=== PATIENT | male | born 2000 | race Caucasian/White ===

== ENCOUNTER 2021-01-11 12:41 | Emergency (ER) | payer OTHER ==
[2021-01-11] MEDS ORDERED: Acetaminophen/oxyCODONE 325-5 MG Tab PO ONE ×2 (12:42→16:02)
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
[2021-01-11] MEDS ORDERED: Acetaminophen/oxyCODONE 325-5 MG Tab ONE (16:17)
== END 2021-01-11 16:27 | disposition home or self-care (01) ==
LOC: DL.ED 12:41
DX: S92.322A Displaced fracture of second metatarsal bone, left foot, initial encounter for closed fracture (principal); S92.335A Nondisplaced fracture of third metatarsal bone, left foot, initial encounter for closed fracture; Z88.0 Allergy status to penicillin; V27.4XXA Motorcycle driver injured in collision with fixed or stationary object in traffic accident, initial encounter
CPT/HCPCS: 73630; 99284; A9270

== ENCOUNTER 2023-06-13 12:47 | Emergency (ER) | payer OTHER ==
[2023-06-13] MEDS ORDERED: Sodium Chloride 0.9% 10 ML Syringe FLUSH PRN (14:02)
[2023-06-13] MEDS ORDERED: Sodium Chloride 0.9% 1,000 ML IV ONE ×2 (14:03→15:05)
[2023-06-13] MEDS ORDERED: diphenhydrAMINE 50 MG/ML SDV IVPUSH ONE (14:04)
[2023-06-13] MEDS ORDERED: Ketorolac 30 MG/ML SDV IVPUSH ONE (14:04)
[2023-06-13] MEDS ORDERED: Metoclopramide 10 MG/2 ML SDV IVPUSH ONE (14:04)
[2023-06-13 14:16] LABS: BASOPHILS PERCENT AUTO 0.5 % (0.0-1.0); EOSINOPHILS PERCENT AUTO 0.6 % (1.0-3.0); HEMATOCRIT 42.3 % (40.0-54.0); HEMOGLOBIN 14.1 g/dL (14.0-18.0); LYMPHOCYTES PERCENT AUTO 7.8 % (20.5-50.1); MEAN CORPUSCULAR HEMOGLOBIN 33.2 pg (27.0-34.0); MEAN CORPUSCULAR HGB CONC 33.3 g/dL (33.0-35.0); MEAN CORPUSCULAR VOLUME 99.5 fL (80-100); MONOCYTES PERCENT AUTO 5.7 % (2-8); NEUTROPHILS PERCENT AUTO 85.4 % (42.2-75.2); PLATELET COUNT,PLT 238 10^3/uL (150-450); RED BLOOD CELL COUNT 4.25 10^6/uL (4.6-6.2); WHITE BLOOD CELL COUNT,WBC 14.5 10^3/uL (5.0-10.0)
[2023-06-13 14:35] LABS: A/G RATIO 1.2; ALANINE AMINOTRANSFERASE,ALT 58 U/L (16-63); ALBUMIN 3.8 g/dL (3.4-5.0); ALKALINE PHOSPHATASE 66 U/L (46-116); ANION GAP 8.1 mEq/L (7-13); ASPARTATE AMNIOTRANSFERASE,AST 40 U/L (15-37); BILIRUBIN TOTAL 0.2 mg/dL (0.2-1.0); BLOOD UREA NITROGEN,BUN 14 mg/dL (7-18); BUN/CREATININE RATIO 13.9 (No establ ref range); CALCIUM 8.6 mg/dL (8.5-10.1); CARBON DIOXIDE,CO2 32 mmol/L (21-32); CHLORIDE,CL 103 mmol/L (98-107); CREATININE 1.01 mg/dL (0.70-1.30); EST CRCL DRUG DOSING (CG) 115.44 mL/min; GLUCOSE RANDOM 100 mg/dL (70-99); POTASSIUM,K 4.1 mmol/L (3.5-5.1); PROTEIN TOTAL,TP 7.1 g/dL (6.4-8.2); SODIUM,NA 139 mmol/L (136-145)
[2023-06-13 14:36] LABS: C-REACTIVE PROTEIN < 0.50 ng/dL (<=0.50); ESTIMATED GFR 106 mL/min (>=60); ETHANOL BLOOD MEDICAL < 3 mg/dL (0)
[2023-06-13 15:03] LABS: APPEARANCE,URINE CLOUDY (CLEAR); BILIRUBIN,URINE NEGATIVE (NEGATIVE); COLOR,URINE YELLOW (YELLOW); GLUCOSE,URINE NEGATIVE (NEGATIVE); KETONES,URINE NEGATIVE (NEGATIVE); LEUKOCYTE ESTERASE,URINE NEGATIVE (NEGATIVE); NITRITE,URINE NEGATIVE (NEGATIVE); OCCULT BLOOD,URINE NEGATIVE (NEGATIVE); PROTEIN,URINE NEGATIVE (NEGATIVE); UROBILINOGEN,URINE 0.2 mg/dL (0.2-1.0)
[2023-06-13] MEDS ORDERED: Iopamidol 612 MG/ML 100 ML Bottle IVPUSH ONE (15:05)
[2023-06-13 15:07] LABS: AMPHETAMINES,URINE NEGATIVE (NEGATIVE); BARBITURATES,URINE NEGATIVE (NEGATIVE); BENZODIAZEPINE,URINE NEGATIVE (NEGATIVE); MDMA (ECSTASY), URINE NEGATIVE (NEGATIVE); METHADONE,URINE NEGATIVE (NEGATIVE); METHAMPHETAMINES,URINE NEGATIVE (NEGATIVE); OPIATES,URINE NEGATIVE (NEGATIVE); OXYCODONE,URINE NEGATIVE (NEGATIVE); PHENCYCLIDINE,URINE NEGATIVE (NEGATIVE); TCA,URINE NEGATIVE (NEGATIVE)
[2023-06-13] MEDS ORDERED: Naloxone 2 MG/2 ML Syringe IVPUSH STA (15:37)
[2023-06-13 15:47] LABS: CORONAVIRUS COVID-19 NAA NEGATIVE (NEGATIVE); INFLUENZA A NAA NEGATIVE (NEGATIVE); INFLUENZA B NAA NEGATIVE (NEGATIVE); RESPIRATORY SYNCYTIAL VIR NAA NEGATIVE (NEGATIVE)
[2023-06-13] MEDS ORDERED: Take Home: Ondansetron 4 MG Tab.DIS, 5 Tab Pack PO ONE (16:13)
[2023-06-13] MEDS ORDERED: Take Home: Doxycycline 100 MG Cap, 4 Cap Pack PO ONE (16:13)
== END 2023-06-13 17:08 | disposition home or self-care (01) ==
LOC: DL.ED 12:47
DX: J32.9 Chronic sinusitis, unspecified (principal); R11.2 Nausea with vomiting, unspecified; F14.10 Cocaine abuse, uncomplicated; F12.10 Cannabis abuse, uncomplicated; F17.210 Nicotine dependence, cigarettes, uncomplicated; Z88.0 Allergy status to penicillin
CPT/HCPCS: 0241U; 36415; 70470; 80053; 80305-QW; 80307; 81003; 85025; 86140; 87081; 87430; 96361; 96374; 96375; 99284; 99284-25; J1200; J1885; J2310; J2765; J7030; Q9967

== ENCOUNTER 2023-06-18 13:32 | Emergency (ER) | payer OTHER ==
[2023-06-18] MEDS ORDERED: OLANZapine 10 MG Vial IM ONE ×2 (13:43→13:56)
[2023-06-18] MEDS ORDERED: Sodium Chloride 0.9% 10 ML Syringe FLUSH PRN (13:43)
[2023-06-18] MEDS ORDERED: OLANZapine 10 MG Vial ONE (13:54)
[2023-06-18 14:08] LABS: BASOPHILS PERCENT AUTO 0.2 % (0.0-1.0); EOSINOPHILS PERCENT AUTO 0.8 % (1.0-3.0); HEMATOCRIT 47.9 % (40.0-54.0); HEMOGLOBIN 16.1 g/dL (14.0-18.0); MEAN CORPUSCULAR HEMOGLOBIN 33.1 pg (27.0-34.0); MEAN CORPUSCULAR HGB CONC 33.6 g/dL (33.0-35.0); MEAN CORPUSCULAR VOLUME 98.4 fL (80-100); PLATELET COUNT,PLT 388 10^3/uL (150-450); RED BLOOD CELL COUNT 4.87 10^6/uL (4.6-6.2); WHITE BLOOD CELL COUNT,WBC 17.1 10^3/uL (5.0-10.0)
[2023-06-18] MEDS ORDERED: diphenhydrAMINE 50 MG/ML SDV IVPUSH ONE (14:13)
[2023-06-18] MEDS ORDERED: LORazepam 2 MG/ML SDV IVPUSH ONE (14:13)
[2023-06-18 14:29] LABS: A/G RATIO 1.2; ALBUMIN 4.8 g/dL (3.4-5.0); ALKALINE PHOSPHATASE 72 U/L (46-116); ANION GAP 26.2 mEq/L (7-13); ASPARTATE AMNIOTRANSFERASE,AST 13 U/L (15-37); BILIRUBIN TOTAL 0.7 mg/dL (0.2-1.0); BLOOD UREA NITROGEN,BUN 16 mg/dL (7-18); CALCIUM 9.1 mg/dL (8.5-10.1); CARBON DIOXIDE,CO2 17 mmol/L (21-32); CHLORIDE,CL 98 mmol/L (98-107); GLUCOSE RANDOM 128 mg/dL (70-99); POTASSIUM,K 3.2 mmol/L (3.5-5.1); PROTEIN TOTAL,TP 8.7 g/dL (6.4-8.2); SODIUM,NA 138 mmol/L (136-145)
[2023-06-18 14:36] LABS: C-REACTIVE PROTEIN < 0.50 ng/dL (<=0.50); ESTIMATED GFR 61 mL/min (>=60)
[2023-06-18 14:40] LABS: AMPHETAMINES,URINE NEGATIVE (NEGATIVE); BARBITURATES,URINE NEGATIVE (NEGATIVE); BENZODIAZEPINE,URINE NEGATIVE (NEGATIVE); MDMA (ECSTASY), URINE NEGATIVE (NEGATIVE); METHADONE,URINE NEGATIVE (NEGATIVE); METHAMPHETAMINES,URINE NEGATIVE (NEGATIVE); OPIATES,URINE NEGATIVE (NEGATIVE); OXYCODONE,URINE NEGATIVE (NEGATIVE); PHENCYCLIDINE,URINE NEGATIVE (NEGATIVE); TCA,URINE NEGATIVE (NEGATIVE)
[2023-06-18] MEDS ORDERED: Haloperidol Lactate 5 MG/ML SDV IVPUSH ONE (14:50)
[2023-06-18] MEDS ORDERED: Ketamine 500 mg/10 ML MDV IV ONE ×3 (15:00→15:54)
[2023-06-18 15:01] LABS: ALANINE AMINOTRANSFERASE,ALT 33 U/L (16-63)
[2023-06-18] MEDS ORDERED: fentaNYL 250 MCG in Sodium Chloride 0.9% 250 ML IV ONE (15:30)
[2023-06-18] MEDS ORDERED: Midazolam 50 MG in Sodium Chloride 0.9% 40 ML IV SCH ×2 (15:30→16:00)
[2023-06-18] MEDS ORDERED: Rocuronium 100 MG/10 ML MDV IVPUSH ONE (15:42)
[2023-06-18] MEDS ORDERED: Midazolam 1 MG/ML 2 ML SDV ONE ×5 (16:01→18:20)
[2023-06-18] MEDS ORDERED: Rocuronium 100 MG/10 ML MDV IV ONE ×4 (16:02→18:00)
[2023-06-18] MEDS ORDERED: Sodium Chloride 0.9% 1,000 ML IV ONE ×2 (16:03→16:17)
[2023-06-18] MEDS ORDERED: Etomidate 2 MG/ML 10 ML SDV IVPUSH ONE (16:04)
[2023-06-18] MEDS ORDERED: Midazolam 1 MG/ML 2 ML SDV IVPUSH ONE ×4 (16:04→19:45)
[2023-06-18 16:05] LABS: BASE EXCESS ARTERIAL 1 mmol/L ((-2)-(+3)); BICARBONATE,ARTERIAL 26.1 mmol/L (22-26); O2 DELIVERY DEVICE VENTILATOR; O2 SATURATION ARTERIAL 98 % (95-100); PCO2 ARTERIAL 44 mmHg (35-45); PH,ARTERIAL 7.39 (7.35-7.45); PO2 ARTERIAL 113 mmHg (70-100)
[2023-06-18] MEDS ORDERED: fentaNYL 250 MCG in Sodium Chloride 0.9% 250 ML IV SCH (17:45)
[2023-06-21 13:11] LABS: ALLEN TEST NOT PERFORMED
== END 2023-06-18 19:07 ==
LOC: DL.ED 13:32
DX: F19.951 Other psychoactive substance use, unspecified with psychoactive substance-induced psychotic disorder with hallucinations (principal); Z88.0 Allergy status to penicillin
CPT/HCPCS: 31500; 36415; 36600; 70450; 71045; 80053; 80305; 82140; 82803; 85025; 86140; 96365; 96366; 96368; 96372; 96375; 96376; 99285; J1200; J1630; J2060; J2250; J2405; J3010; J3490; J7030; J7050

== ENCOUNTER 2023-06-26 00:37 | Emergency (ER) | payer OTHER ==
[2023-06-26] MEDS ORDERED: Ketorolac 30 MG/ML SDV IVPUSH ONE (01:05)
[2023-06-26] MEDS ORDERED: Sodium Chloride 0.9% 10 ML Syringe FLUSH PRN (01:05)
[2023-06-26] MEDS ORDERED: LORazepam 2 MG/ML SDV IVPUSH ONE (01:05)
== END 2023-06-26 01:48 | disposition home or self-care (01) ==
LOC: DL.ED 00:37
DX: G43.909 Migraine, unspecified, not intractable, without status migrainosus (principal); F17.210 Nicotine dependence, cigarettes, uncomplicated; Z88.0 Allergy status to penicillin
CPT/HCPCS: 96374; 96375; 99283; J1885; J2060; J3490

== ENCOUNTER 2023-12-05 13:05 | Emergency (ER) | payer OTHER ==
[2023-12-05] MEDS: Bacitracin/Neomycin/Polymyxin B Oint 28.4 GM Tube TOP ONE (14:46)
[2023-12-05] MEDS: Lidocaine 1% 5 ML VIAL INJECT ONE (14:46)
[2023-12-05] MEDS: Ketorolac 30 MG/ML SDV IVPUSH ONE (14:50)
[2023-12-05] MEDS: Orphenadrine 60 MG/2 ML Inj IM ONE (14:52)
[2023-12-05] MEDS: Take Home: Doxycycline 100 MG Cap, 4 Cap Pack PO ONE (14:57)
[2023-12-05] MEDS: Take Home: Clindamycin HCl 150 MG, 12 Cap Pack PO ONE (14:59)
[2023-12-05] MEDS: Sodium Chloride 0.9% 10 ML Syringe FLUSH PRN (15:27)
[2023-12-05] MEDS: Vancomycin 1.5 GM in Sodium Chloride 0.9% 500 ML IV ONE (15:27)
[2023-12-05] MEDS: Take Home: Cyclobenzaprine 10 MG Tab, 4 Tab Pack PO ONE (16:05)
[2023-12-05] MEDS: Diphtheria,Pertussis(Acell),Tetanus Vaccine 0.5 ML Syringe IM ONE (17:09)
== END 2023-12-05 17:37 | disposition home or self-care (01) ==
LOC: DL.ED 13:05
DX: S63.282A Dislocation of proximal interphalangeal joint of right middle finger, initial encounter (principal); S39.012A Strain of muscle, fascia and tendon of lower back, initial encounter; Z88.0 Allergy status to penicillin; V29.99XA Rider (driver) (passenger) of other motorcycle injured in unspecified traffic accident, initial encounter
CPT/HCPCS: 26770; 72100; 73130; 73140; 90471; 90715; 96365; 96366; 96372; 96375; 99284; A9270; J1885; J2360; J3370; J7040; J3490